=== PATIENT | female | born 1970 | race Caucasian/White ===

== ENCOUNTER 2020-09-26 12:17 | Emergency (ER) | payer MEDICAID, SELFPAY ==
[2020-09-26 12:18] VITALS: BP 160/113; PULSE 109; RESP 16; TEMP 36.9; O2SAT 93; BMI 46.5
[2020-09-26] MEDS: Ketorolac 60 MG/2 ML Vial IM (12:55)
[2020-09-26 13:33] VITALS: BP 134/92; PULSE 72; RESP 16; O2SAT 98
--- NOTE | 2020-09-26 13:35 | EX.ED.DYSGE1 ---
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 she is had x-rays lab work she was told she has osteoarthritis she completed physical therapy she reports the pain waxes and wanes her physicians will have her use [id number] medications that are not helping, she has no history of trauma no history of any type of cauda equina type symptoms, no incontinence numbness weakness or paresthesias pain restricted to the lumbar back, she indicates additional studies such her MRI is something she is discussed with her physicians and indicates she needs to complete physical therapy before this can be done and she has completed the physical therapy [facility] Medical History (Updated 09/26/20 @ 13:[address] Lore Angel MD) Hypercholesteremia Hypothyroid PTSD (post-traumatic stress disorder) Home Medications hydrocodone-acetaminophen 1 tab PO Q4H PRN PRN 2 Days #10 tablet 09/26/20 [Rx Last Taken Unknown] Allergy/AdvReac Type Severity Reaction Status Date / Time No Known Allergies Allergy Verified 09/26/20 12:23 Surgical History (Updated 09/26/20 @ 13:39 by Crow Galindo) History of Social History Smoking Status: Current every day smoker tobacco type: cigarettes ROS ROS ED ROS Narrative Lumbar back pain as above no other complaints no red flags Constitutional Constitutional ED: Reports subjective, sweats and other; Denies chills, fever(s) or weight loss Eyes Eyes: Denies blurry vision or change in vision ENT ENT ED: Denies ear pain Cardiovascular Cardiovascular: Denies chest pain or palpitations Respiratory/Chest Respiratory/Chest: Denies dyspnea Gastrointestinal Gastrointestinal: Denies abdominal pain, nausea or vomiting Genitourinary Genitourinary ED: Denies dysuria or hematuria Musculoskeletal Musculoskeletal: Denies arthralgias or myalgias Integumentary Reports rash; Denies abscess Neurologic Neurologic: Denies weakness Psychiatric Psychiatric: Denies anxiety or depression Endocrine Endocrinology: Denies polydipsia or polyuria Allergic/Immunologic Allergic/Immunologic ED: Denies urticaria EXAM Physical Exam Narrative Exam Narrative: No neurologic abnormalities she has pain to the lumbar back she is able to stand and walk heel and toe raise knee bend no cauda equina symptoms no red flags Const Vital Signs: 09/26/20 12:18 Temperature 98.4 F Temperature Source Temporal Pulse Rate 109 H Respiratory Rate 16 Blood Pressure 160/113 H Blood Pressure Mean 128 Pulse Ox 93 Oxygen Delivery Method Room Air Positive well developed General Appearance ED: well developed HEENT Reports normocephalic Negative for trauma Eyes EOMs intact bilaterally Neck supple Chest Wall inspection of chest normal Resp normal respiratory effort Cardio regular rate GI non-tender and non-distended Back/Spine Back/Spine Narrative: unremarkable Mild pain to the low lumbar back no lesions no trauma Extremity normal to inspection Neuro oriented x3 and CN's II-XII intact bilaterally Sensorium / Orientation: alert Psych mental status grossly normal Skin no rashes or lesions noted MDM MDM MDM Narrative Medical decision making narrative: I had a long conversation with the patient she indicates again she had an extensive outpatient work-up with labs x-rays she is seen multiple providers including rheumatology she has completed physical therapy the back pain is ongoing since January 2020 no new symptoms or issues her pain management is ineffective at this time she does not wish to have an ED evaluation she will be treated with Toradol she be discharged on [place] short course to use as a rescue medicine and follow-up with outpatient providers Discharge Plan Triage Chief Complaint: Back ED Provider: Lore Angel Dx/Rx/DC Orders Instructions: ED Back Pain (Acute or Chronic) Prescriptions: New hydrocodone-acetaminophen [hydrocodone-acetaminophen] 1 TABLET tablet 1 tab PO Q4H PRN PRN (Reason: Pain) 2 Days Qty: 10 RF: 0 Primary Care Provider: Ez Medina Referrals: Ez Medina MD [Primary Care Provider] -
[2020-09-26 14:03] VITALS: BP 133/96
--- NOTE | 2020-09-26 14:04 | ED.RN ---
Pt admits improvement of symptoms. States leg isn't as heavy. I wrote out proper usage of home meds to alleviate any confusion per pt request.
== END 2020-09-26 14:05 ==
LOC: ED 13:14
PROVIDERS: Emergency Provider Emergency Medicine; PCP Family Medicine
DX: M54.5 Low back pain (principal); F17.210 Nicotine dependence, cigarettes, uncomplicated; E78.00 Pure hypercholesterolemia, unspecified; E03.9 Hypothyroidism, unspecified; F43.10 Post-traumatic stress disorder, unspecified
CPT/HCPCS: 99282